=== PATIENT | female | born 1990 | race African-American/Black ===

== ENCOUNTER → 2020-05-18 | Outpatient (CLI) | payer OTHER | END | disposition home or self-care (01) | LOC: MRI 12:27 | PROVIDERS: ATTEND Orthopaedic Surgery | DX: S83.512A Sprain of anterior cruciate ligament of left knee, initial encounter (principal) | CPT/HCPCS: 73721 ==

== ENCOUNTER 2020-07-22 07:31 | Outpatient (CLI) | payer OTHER | END 2020-07-22 18:50 | disposition home or self-care (01) | LOC: LAB 07:31 | PROVIDERS: ATTEND Emergency Medicine Pediatric Emergency Medicine | DX: Z03.818 Encounter for observation for suspected exposure to other biological agents ruled out (principal) ==

== ENCOUNTER → 2020-08-04 | Outpatient (CLI) | payer OTHER | END | disposition home or self-care (01) | LOC: MRI 09:59 | PROVIDERS: ATTEND Physical Medicine & Rehabilitation Sports Medicine | DX: R10.11 Right upper quadrant pain (principal) | CPT/HCPCS: 74181 ==